=== PATIENT | female | born 1985 | race Caucasian/White ===

== ENCOUNTER 2021-10-27 10:09 | Emergency (ER) | payer OTHER ==
[2021-10-27 12:21] LABS: HEMOGLOBIN 13.1 gm/dl (12.3-15.3); RED BLOOD COUNT 4.45 M/UL (4.00-5.10); WHITE BLOOD COUNT 10.5 K/UL (4.5-11.0)
[2021-10-27 12:47] LABS: BUN/CREATININE RATIO 15 (0-10)
[2021-10-27] MEDS ORDERED: LEVOFLOXACIN500 MG PO (13:44)
[2021-10-27] MEDS ORDERED: BACTRIM DS TAB1 EACH PO (13:44)
== END 2021-10-27 14:07 | disposition left against medical advice (07) ==
LOC: ER1 10:09
PROVIDERS: Emergency Medicine
DX: L03.115 Cellulitis of right lower limb (principal); F17.200 Nicotine dependence, unspecified, uncomplicated
CPT/HCPCS: 73610; 73630; 80053; 83605; 84550; 84703; 85025; 85652; 86140; 87040; 93971; 96374; 96375; 99283; J0696; J1335; J2405